=== PATIENT | male | born 2000 ===

== ENCOUNTER 2022-11-07 21:18 | Emergency (ER) | payer SELFPAY ==
[2022-11-07] MEDS ORDERED: Acetaminophen 500 MG Tab PO ONE (21:56)
[2022-11-07] MEDS ORDERED: Ibuprofen 600 MG Tab PO ONE (21:56)
== END 2022-11-07 22:26 | disposition home or self-care (01) ==
LOC: MW.ED 21:18
DX: Z04.1 Encounter for examination and observation following transport accident (principal)
CPT/HCPCS: 99283